=== PATIENT | female | born 1965 | race Caucasian/White ===

== ENCOUNTER 2018-03-16 06:34 | Day surgery (SDC) | payer BC ==
[~2018-03-16] VITALS: Ht 160 cm; Wt 93.6 kg
[2018-03-16] MEDS ORDERED: IOHEXOL 350 MG/ML 100 ML BTL (for Cath Lab) OTHER ONE (06:35)
--- NOTE | 2018-03-16 07:17 | HHI.HP ---
History of Present Illness Chief Complaint: B LE claudication History of Present Illness 52 yo female with B LE claudication, lifestyle limiting. No rest pain and no tissue loss. CTA suggestive of SFA disease bilaterally. has been feeling well over past few days. Stopped smoking 3 weeks ago. Past/Family/Social History Past Medical History HTN DM XOL Past Surgical History appy osmani knee surgery Social History former tobacco Family History NC Coded Allergies: Morphine (Verified Allergy, Mild, 03/16/18) Review of Systems Constitutional: DENIES: Diaphoretic episodes, Fatigue, Fever, Weight gain, Weight loss, Chills, Dizziness, Change in appetite, Night Sweats Physical Exam Neuro: alert, oriented, no distress, OSORIO HEENT: NC/AT Neck: no JVD Heart: reg rate, no M Lungs: clear B Vascular: no wounds Caprini VTE Risk Assessment Caprini VTE Risk Assessment: No/Low Risk (score <= 1) Caprini Risk Assessment Model Point Value = 1 Point Value = 2 Point Value = 3 Point Value = 5 Age 41-60 Minor surgery BMI > 25 kg/m2 Swollen legs Varicose veins or History of unexplained or recurrent spontaneous Oral contraceptives or hormone replacement Sepsis (< 1 month) Serious lung disease, including pneumonia (< 1 month) Abnormal pulmonary function Acute myocardial infarction Congestive heart failure (< 1 month) History of inflammatory bowel disease Medical patient at bed rest Age 61-74 Arthroscopic surgery Major open surgery (> 45 min) Laparoscopic surgery (> 45 min) Malignancy Confined to bed (> 72 hours) Immobilizing plaster cast Central venous access Age >= 75 History of VTE Family history of VTE Factor V Leiden Prothrombin [id number] Lupus anticoagulant Anticardiolipin antibodies Elevated serum homocysteine Heparin-induced thrombocytopenia Other congenital or acquired thrombophilia Stroke (< 1 month) Elective arthroplasty Hip, pelvis, or leg fracture Acute spinal cord injury (< 1 month) Prophylaxis Regimen Total Risk Factor Score Risk Level Prophylaxis Regimen 0-1 Low Early ambulation 2 Moderate Order ONE of the following: *Sequential Compression Device (SCD) *Heparin 5000 units SQ BID 3-4 Higher Order ONE of the following medications: *Heparin 5000 units SQ TID *Enoxaparin/Lovenox 40 mg SQ daily (WT < 150 kg, CrCl > 30 mL/min) *Enoxaparin/Lovenox 30 mg SQ daily (WT < 150 kg, CrCl > 10-29 mL/min) *Enoxaparin/Lovenox 30 mg SQ BID (WT < 150 kg, CrCl > 30 mL/min) AND/OR *Sequential Compression Device (SCD) 5 or more Highest Order ONE of the following medications: *Heparin 5000 units SQ TID (Preferred with Epidurals) *Enoxaparin/Lovenox 40 mg SQ daily (WT < 150 kg, CrCl > 30 mL/min) *Enoxaparin/Lovenox 30 mg SQ daily (WT < 150 kg, CrCl > 10-29 mL/min) *Enoxaparin/Lovenox 30 mg SQ BID (WT < 150 kg, CrCl > 30 mL/min) AND *Sequential Compression Device (SCD) Assessment and Plan Plan B LE angiogram DOCU and home post-operatively Discharge Planning today Wallace Rodriguez MD Mar 16, 2018 07:17
[2018-03-16] MEDS ORDERED: METF1000 PO (07:22)
[2018-03-16] MEDS ORDERED: ESTR1TAB PO (07:22)
[2018-03-16] MEDS ORDERED: TRAM50TA PO (07:22)
[2018-03-16] MEDS ORDERED: LISI20TA PO (07:22)
[2018-03-16] MEDS ORDERED: ATOR10TA15 PO (07:22)
[2018-03-16] MEDS ORDERED: AMBI5TAB PO (07:22)
[2018-03-16] MEDS ORDERED: ASPI-516 PO (07:22)
[2018-03-16] MEDS ORDERED: PROG100C PO (07:22)
[2018-03-16] MEDS ORDERED: CLOP75TA PO (07:22)
[2018-03-16 07:25] VITALS: BP 131/93; PULSE 92; RESP 18; TEMP 97.8; O2SAT 98
[2018-03-16] MEDS ORDERED: HEPARIN-NS/PF INJ 1,000 ML ONE (07:30)
[2018-03-16] MEDS ORDERED: SODIUM BICARBONATE 100 MEQ in D5W 1000 ML IV SCH (07:30)
[2018-03-16] MEDS ORDERED: HEPARIN SODIUM - IV 10,000 UNITS/10 ML VIAL ONE (07:33)
[2018-03-16] MEDS ORDERED: MIDAZOLAM HCL 5 MG/5 ML VIAL ONE (07:33)
[2018-03-16 07:42] LABS: CREATININE 1.17 MG/DL (0.50-1.00)
[2018-03-16] MEDS ORDERED: MIDAZOLAM HCL 2 MG/2 ML VIAL ONE ×2 (07:51→08:16)
--- NOTE | 2018-03-16 08:42 | HHI.PR ---
cc: Wallace Rodriguez MD Immediate Post Op Note Procedure Date: Mar 16, 2018 Pre Op Diagnosis: B LE claudication, PAD Post Op Diagnosis: B LE claudication, PAD Surgeon: Wallace Rodriguez Websphere Commerce Developer(s): none Procedure: 1. Aortogram w/ B LE angiogram 2. B SFA NURSERY TECHNICIAN (5mm) 3. B EEG TECHNOLOGIST Angioseal Findings: B SFA stenosis, successful NURSERY TECHNICIAN good runoff Complications: none Specimen(s) removed: none Estimated blood loss: 15mL Anesthesia: MAC Drains: None Patient to: Other (DOCU) Patient Condition: Good Implant/Devices: SEE IMPLANT LOG (if applicable) Date/Time of Procedure: SEE SURGICAL CARE RECORD Wallace Rodriguez MD Mar 16, 2018 08:42
--- NOTE | 2018-03-16 08:51 | CATHPROC ---
[facility] HIS Report Study Information Study Number Admission Scheduled Start Study Start [id number] Mar 16 2018 6:34AM 03/16/2018 Mar 16 2018 7:26AM [place] Service Cath Endovascular Study Admit Source Facility Department Other [facility] - [facility] Set Up Operator Tool Physician and Clinical Staff Initial MD Rodriguez, Wallace Geophysics Scientistcady Meadows RN, Julio Recorder Panfilo Ochoa,RT(R) Shavon Crocker,RT(R) (BS) Procedures Performed Procedure Location (Site) Vessel Name Abdominal Angiogram Abd Aorta (A3) Aorta MORTGAGE MANAGER SFA (left) Femoral Art MORTGAGE MANAGER SFA (right) Femoral Art Wire insertion Fem Art (left) Femoral Art Wire insertion Fem Art (right) Femoral Art Equipment Time Sorting Livestock Worker Description Size Mfg Part Number Used/Scraped [id number] 07:52 ANGIO-DYNAMICS OMNI FLUSH 65CM CATHETER FR 4 Used *[id number] INTRODUCER SET, 07:38 [employer]. FR 5 [id number] *[id number] Used MICROPUNCTURE STIFF SHEATH, FR6 KEIKO 1 FLEXOR [id number] 07:59 COOK/DIMPLE FR 6 Used 55CM *[id number] 08:06 DAIG/ST. EMILY MEDICAL ANGIOSEAL, FR6 VIP FR 6 Used *[id number] 08:28 DAIG/ST. EMILY MEDICAL ANGIOSEAL, FR6 VIP FR 6 Used *[id number] BALLOON, EVERCROSS 5 X 120 [id number] 08:28 [employer] 5 X 120 Used 135CM *[id number] BALLOON, EVERCROSS 5 X 60 08:05 [employer] 5 X 60 [id number] Used 135CM [id number] 07:38 [employer] BLANKET,WARM AIR CCL * Used *[id number] 07:38 [employer] PACK, CCL CUSTOM * Used *[id number] 08:03 [employer] 30 MOHIT INDEFLATOR Used *[id number] [id number] 08:01 [employer] WIRE, PRATHER 260CM .035 260CM Used *[id number] TUBING, PRESSURE INJECTION [id number] 07:38 NAMIC 72" Used 72" *[id number] 07:38 [employer]COMED OMNIPAQUE, 300 MG, 150ML 150ML [id number] Used 07:38 [employer] OMNIPAQUE, 300 MG, 50ML 50ML [id number] Used [id number] 07:39 TERUMO MED[employer] SHEATH, FR5 TERUMO (10CM) FR 5 Used *[id number] 07:45 [employer] MEDICAL SHEATH, FR5 TERUMO (10CM) FR 5 Used *[id number] WIRE, ANGLED GLIDE .035 [id number] 07:38 TERUMO MEDICAL/DIMPLE 260CM Used 260CM *[id number] Equipment Model, Serial, Lot Number and Expiration Data Description Model Number Serial Number Lot Number Expiration Date ANGIOSEAL, FR6 VIP [id number] 07-27-2018 ANGIOSEAL, FR6 VIP [id number] 10-27-2018 BALLOON, EVERCROSS 5 X 120 [id number] 12-21-2020 135CM SHEATH, FR6 KEIKO 1 FLEXOR [id number] 11-11-2020 55CM History: Allergies Allergy Reaction morphine Medication Medication Total Dose (Bolus/Oral) Medication Total Dosage/Unit 1% XYLOCAINE 20 mL FENTANYL 250 mcg HEPARIN 3000 units VERSED 9 mg Medications (Bolus/Oral) Medication Time Given Dosage/Unit Administered By Reason VERSED 03/16/2018 7:40:55 AM 2 mg Julio Meadows RN 2 mg VERSED given in lab by Julio Meadows RN via Peripheral IV. Ordered by Wallace Rodriguez. FENTANYL 03/16/2018 7:42:17 AM 50 mcg Julio Meadows RN 50 mcg FENTANYL given in lab by Julio Meadows RN in Left Antecubital via Peripheral IV. Ordered by Wallace Kim. VERSED 03/16/2018 7:44:48 AM 2 mg Julio Meadows RN 2 mg VERSED given in lab by Julio Meadows RN via Peripheral IV. Ordered by Wallace Rodriguez. VERSED 03/16/2018 7:47:40 AM 1 mg Wallace Rodriguez 1 mg VERSED given in lab by Wallace Rodriguez via Peripheral IV. Ordered by Wallace Rodriguez. 1% XYLOCAINE 03/16/2018 7:48:53 AM 10 mL Wallace Rodriguez 10 mL 1% XYLOCAINE given in lab by Wallace Rodriguez in Right Groin via Subcutaneous. Ordered by Wallace Rodriguez. FENTANYL 03/16/2018 7:48:54 AM 50 mcg Wallace Rodriguez 50 mcg FENTANYL given in lab by Wallace Rodriguez via Peripheral IV. Ordered by Wallace Rodriguez. FENTANYL 03/16/2018 7:53:40 AM 50 mcg Julio Meadows RN 50 mcg FENTANYL given in lab by Julio Meadows RN via Peripheral IV. Ordered by Wallace Rodriguez. VERSED 03/16/2018 7:56:37 AM 1 mg Julio Meadows RN 1 mg VERSED given in lab by Julio Meadows RN via Peripheral IV. Ordered by Wallace Rodriguez. HEPARIN 03/16/2018 8:00:26 AM 3000 units Julio Meadows RN 3000 units HEPARIN given in lab by Julio Meadows RN via Peripheral IV. Ordered by Wallace Rodriguez. FENTANYL 03/16/2018 8:08:36 AM 50 mcg Julio Meadosw RN 50 mcg FENTANYL given in lab by Julio Meadows RN via Peripheral IV. Ordered by Wallace Rodriguez. VERSED 03/16/2018 8:11:14 AM 1 mg Julio Meadows RN 1 mg VERSED given in lab by Julio Meadows RN via Peripheral IV. Ordered by Wallace Rodriguez. 1% XYLOCAINE 03/16/2018 8:12:00 AM 10 mL Wallace Rodriguez 10 mL 1% XYLOCAINE given in lab by Wallace Rodriguez in Left Groin via Subcutaneous. Ordered by Wallace oRdriguez. VERSED 03/16/2018 8:15:26 AM 2 mg Julio Meadows RN 2 mg VERSED given in lab by Julio Meadows RN via Peripheral IV. Ordered by Wallace Rodriguez. FENTANYL 03/16/2018 8:19:10 AM 50 mcg Julio Meadows RN 50 mcg FENTANYL given in lab by Julio Meadows RN via Peripheral IV. Ordered by Wallace Rodriguez. Medication (Drip) Medication Time Given Dosage/Unit Concentration/Unit Diluent (ml) Solution IV Solutions 03/16/2018 7:34:49 AM 0 mL (IV) 500 NaCl .9 Patient arrived on IV Solutions given by Wallace Rodriguez in Left Antecubital via Peripheral IV. Pump/D rip Flow = 20 ml/hr using NaCl .9. Ordered by Wallace Rodriguez. Initial Case Assessment Cardiovascular HR Rhythm NIBP Chest Pain 85 sr 142/69 0 Edema Present Skin color Skin None Normal Warm Dry Circulatory - Right Pulses Femoral 2 Scale (0,1,2,3,4,d) Circulatory - Left Pulses Femoral 2 Scale (0,1,2,3,4,d) Neurological State Oriented to time-place- Alert Moves all extremities person Respiration - General Respiration Rate SpO2 (%) O2 (lpm) (B/min) 18 96 0 Final Case Assessment Cardiovascular HR Rhythm NIBP 97 sr 127/72 Edema Present Skin color Skin None Normal Warm Dry Circulatory - Right Pulses Femoral 2 Scale (0,1,2,3,4,d) Circulatory - Left Pulses Femoral 2 Scale (0,1,2,3,4,d) Neurological State Oriented to time-place- Alert Moves all extremities person Respiration - General Respiration Rate SpO2 (%) O2 (lpm) (B/min) 18 96 0 Chronological Log Time Study Chronological Log 7:25:46 Patient arrived via Bed. 7:25:48 Patient Name, D.O.B, / Armband Verified By R.N. 7:25:49 Consent signed by the physician and the patient and verified by the [facility] Set Up Operator Tool staff. 7:25:50 Pre-op and post- op instructions given; patient acknowledges understanding of instructions. 7:26:08 Verbal Stimulation=2 Physical Stimulation=2 Airway=2 Respiration=2 TOTAL=8. (0=absent, 1=li mited, 2=present) 7:26:16 Presedation assessment performed by Ch[facility] Machine Set Up Operator Tool RN. 7:26:18 Patient has been NPO for More than 6Hrs. 7:26:19 Skin Breakdown-none present per patient. Vitals capture started with the following parameters, Patient=Adult, Interval=5 min, Initial Pr wulpvf=000 mmHg, 7:34:31 Deflation Rate=5 mmHg, Cuff placed on Right Ankle 7:34:38 A # 20 IV was noted in the Antecubital (left). Grade = 0 Patient arrived on IV Solutions given by Wallace Rodriguez in Left Antecubital via Peripheral IV. Pump/Drip Flow = 20 ml/hr 7:34:49 using NaCl .9. Ordered by Wallace Rodriguez. 7:35:09 HR=86 bpm, RMKX=457/69 mmhg, SpO2=96.0 %, Resp=21 B/min 7:35:10 History and physical on the chart or being dictated. 7:35:21 Reference ECG taken Assessment: Initial Case, HR=85 BPM, Rhythm=sr, OHVY=837/69 mmhg, Chest Pain=0, Edema=None, [place] r=Normal, Skin = Warm, Dry Right Pulses: Femoral=2 7:35:23 Left Pulses: Femoral=2 Neurological: State=Alert, Ox3, OSORIO Respiration: Resp=18 B/min, SpO2=96 %, O2=0 lpm 7:36:00 Bilateral groins prepped with 2% chlorhexidine, and draped after a 3 minute waiting time. 7:39:05 MD arrived. 7:40:06 HR=83 bpm, KSUW=292/85 mmhg, SpO2=97.0 %, Resp=18 B/min 7:40:55 2 mg VERSED given in lab by Julio Meadows RN via Peripheral IV. Ordered by Wallace Rodriguez. 7:42:17 50 mcg FENTANYL given in lab by Julio Meadows RN in Left Antecubital via Peripheral IV. Order ed by Wallace Rodriguez. 7:44:48 2 mg VERSED given in lab by Julio Meadows RN via Peripheral IV. Ordered by Wallace Rodriguez. 7:45:01 HR=88 bpm, CKMG=919/78 mmhg, SpO2=93.0 %, Resp=22 B/min, Omalley=2 7:47:40 1 mg VERSED given in lab by Wallace Rodriguez via Peripheral IV. Ordered by Wallace Rodriguez. Time Out. Correct patient, correct procedure, correct physician, labs, allergies, and equipment verified with slab lifting supervisor 7:48:24 team present. Fire risk assesment completed (see hard stop sheet for coding). Time Out Concu rred by and individual staff in procedure. 7:48:34 Presedation re-assessment performed by Ch[facility] Machine Set Up Operator Tool RN. 7:48:36 Case Start 7:48:38 Verbal Stimulation=2 Physical Stimulation=2 Airway=2 Respiration=2 TOTAL=8. (0=absent, 1=luna ited, 2=present) 7:48:53 10 mL 1% XYLOCAINE given in lab by Wallace Rodriguez in Right Groin via Subcutaneous. Ordered Wallace Cross. 7:48:54 50 mcg FENTANYL given in lab by Wallace Rodriguez via Peripheral IV. Ordered by Wallace Rodriguez. 7:50:04 HR=82 bpm, HGOK=527/65 mmhg, SpO2=93.0 %, Resp=19 B/min, Omalley=2 7:50:39 Access site was Right Femoral Artery. A INTRODUCER SET, MICROPUNCTURE STIFF FR 5 was advanced into the Fem Art (right) using the Percu иринаeous 7:50:50 technique. A SHEATH, FR5 TERUMO (10CM) FR 5 was exchanged in the Fem Art (right). This was necessary in ord er to 7:51:21 accomodate a larger catheter. A OMNI FLUSH 65CM CATHETER FR 4 was advanced over a wire. OMNIPAQUE, 300 MG, 150ML 150ML was use d for 7:52:38 injections. 7:53:40 50 mcg FENTANYL given in lab by Julio Meadows RN via Peripheral IV. Ordered by Wallace Rodriguez . 7:54:06 Wire removed 7:54:18 Through a OMNI FLUSH 65CM CATHETER FR 4, The Abdominal Aorta was injected with 10 cc's of co ntrast. 7:55:38 HR=85 bpm, QKVO=720/72 mmhg, SpO2=96.0 %, Resp=14 B/min, Omalley=2 7:56:33 Wire removed 7:56:37 1 mg VERSED given in lab by Julio Meadows RN via Peripheral IV. Ordered by Wallace Rodriguez. 7:57:23 Through a OMNI FLUSH 65CM CATHETER FR 4, The left fem was injected with 4 cc's per second. 7:57:54 Through a OMNI FLUSH 65CM CATHETER FR 4, The left sfa was injected with 4 cc's per second. 7:58:18 Through a OMNI FLUSH 65CM CATHETER FR 4, The left pop was injected with 4 cc's per second. 7:59:34 A WIRE, ANGLED GLIDE .035 260CM 260CM was inserted via Fem Art (right). 8:00:06 HR=87 bpm, HUZQ=562/73 mmhg, SpO2=92.0 %, Resp=18 B/min, Omalley=2 8:00:26 3000 units HEPARIN given in lab by Julio Meadows RN via Peripheral IV. Ordered by Jaison Rodriguez. 8:02:50 The previous wire was exchanged for a WIRE, PRATHER 260CM .035 260CM. A SHEATH, FR6 KEIKO 1 FLEXOR 55CM FR 6 was exchanged in the Fem Art (right). This was necessary in order to 8:02:54 accomodate a larger catheter. 8:05:07 HR=89 bpm, HSND=459/76 mmhg, SpO2=92.0 %, Resp=21 B/min, Omalley=2 8:05:37 A BALLOON, EVERCROSS 5 X 60 135CM 5 X 60 was inserted over WIRE, PRATHER 260CM .035 260CM via the SFA (left). 8:05:53 In the SFA (left) a BALLOON, EVERCROSS 5 X 60 135CM 5 X 60 was inflated to 10 atms for 120 s econds. 8:08:36 50 mcg FENTANYL given in lab by Julio Meadows RN via Peripheral IV. Ordered by Wallace Rodriguez . 8:08:40 Balloon Removed. 8:10:09 HR=90 bpm, FZTY=033/67 mmhg, SpO2=94.0 %, Resp=18 B/min, Omalley=2 8:10:36 ANGIOSEAL, FR6 VIP FR 6 placement in the Fem Art (right) 8:11:14 1 mg VERSED given in lab by Julio Meadows RN via Peripheral IV. Ordered by Wallace Rodriguez. 8:12:00 10 mL 1% XYLOCAINE given in lab by Wallace Rodriguez in Left Groin via Subcutaneous. Ordered by Wallace Rodriguez. 8:15:06 HR=82 bpm, XCEO=846/79 mmhg, SpO2=96.0 %, Resp=9 B/min, Omalley=2 8:15:26 2 mg VERSED given in lab by Julio Meadows RN via Peripheral IV. Ordered by Wallace Rodriguez. 8:19:10 50 mcg FENTANYL given in lab by Julio Meadows RN via Peripheral IV. Ordered by Wallace Rodriguez . 8:19:35 Access site was Left Femoral Artery. A INTRODUCER SET, MICROPUNCTURE STIFF FR 5 was advanced into the Fem Art (left) using the Percut aneous 8:19:49 technique. A SHEATH, FR5 TERUMO (10CM) FR 5 was exchanged in the Fem Art (right). This was necessary in ord er to 8:20:06 accomodate a larger catheter. 8:20:07 HR=87 bpm, CUWT=353/68 mmhg, SpO2=89.0 %, Resp=21 B/min, Omalley=2 A OMNI FLUSH 65CM CATHETER FR 4 was advanced over a wire. OMNIPAQUE, 300 MG, 150ML 150ML was use d for 8:21:10 injections. 8:23:58 Manual injections down right leg through 4 ivorian omniflush catheters. 8:25:08 HR=86 bpm, JUYH=280/71 mmhg, SpO2=96.0 %, Resp=19 B/min, Omalley=2 8:25:36 A WIRE, PRATHER 260CM .035 260CM was inserted via Fem Art (left). A SHEATH, FR6 KEIKO 1 FLEXOR 55CM FR 6 was exchanged in the Fem Art (left). This was necessary i n order to 8:26:06 accomodate a larger catheter. A BALLOON, EVERCROSS 5 X 120 135CM 5 X 120 was inserted over WIRE, PRATHER 260CM .035 260CM via th e SFA 8:29:26 (right). 8:29:42 In the SFA (right) a BALLOON, EVERCROSS 5 X 120 135CM 5 X 120 was inflated to 10 atms for 12 0 seconds. 8:30:07 HR=87 bpm, UDUF=804/71 mmhg, SpO2=94.0 %, Resp=20 B/min, Omalley=2 8:32:01 Balloon Removed. 8:33:56 ANGIOSEAL, FR6 VIP FR 6 placement in the Fem Art (left) 8:34:18 Case End (Physician broke scrub) 8:35:10 HR=87 bpm, ZNEG=920/72 mmhg, SpO2=96.0 %, Resp=12 B/min, Omalley=2 Assessment: Final Case, HR=97 BPM, Rhythm=sr, WJJD=107/72 mmhg, Edema=None, Color=Normal, Skin = Warm, Dry Right Pulses: Femoral=2 8:35:27 Left Pulses: Femoral=2 Neurological: State=Alert, Ox3, OSORIO Respiration: Resp=18 B/min, SpO2=96 %, O2=0 lpm 8:37:02 Sterile dressing applied to sites. 8:37:33 No case complications noted. 8:37:35 Cine recording checked. 8:37:42 Bedside Report will be given. 8:40:07 HR=85 bpm, JLHQ=898/81 mmhg, SpO2=96.0 %, Resp=29 B/min 8:43:37 Vitals capture stopped. 8:46:55 Patient moved to stretcher End Study - Contrast Media Used In Study Contrast Total Opened (mL) Total Used (mL) Total Wasted (mL) Omnipaque 100 100 0 End Study - Radiation Exposure Fluoro Time (minutes) 5.4 End Study - Patient Disposition Complications Transferred To No Outpatient Bed
--- NOTE | 2018-03-16 09:47 | MP ---
cc: Wallace Rodriguez MD DATE OF OPERATION: 03/16/2018 PREOPERATIVE DIAGNOSIS: Peripheral arterial occlusive disease, bilateral lower extremity claudication. POSTOPERATIVE DIAGNOSIS: Peripheral arterial occlusive disease, bilateral lower extremity claudication. PROCEDURE PERFORMED: 1. Aortogram with bilateral lower extremity angiogram. 2. Left SFA angioplasty with a 5 mm balloon. 3. Right SFA angioplasty with a 5 mm balloon. 4. Bilateral common femoral artery Angio-Seal. ATTENDING SURGEON: Wallace Rodriguez MD ANESTHESIA: Local with sedation. INDICATIONS FOR PROCEDURE: Mrs. Tyler is a 52-year-old female who has bilateral lower extremity claudication and SFA disease by physical examination and CT scan and she was taken to the operating room for endovascular evaluation and potential treatment. There was no prior based catheter-based imaging available for my review. DESCRIPTION OF PROCEDURE: Informed consent was obtained from the patient. She was taken to the operating room and placed supine on the operating room table. An appropriate timeout was taken to ensure the patient's identity, operative site, and planned procedure. The administration of antibiotics was not necessary as this is a clean procedure without the planned implantation of any foreign object. Everyone in the room agreed with the timeout and we proceeded. Her bilateral groins were prepped and draped and the right groin was anesthetized with 1% lidocaine. A 21-gauge micropuncture needle was used to access the right common femoral artery. This was exchanged using Seldinger technique for a micropuncture sheath through which a 0.035 Glidewire was introduced and the micropuncture sheath was exchanged for a 5-Icelandic sheath. A VCF catheter was placed over the wire into the sheath and the aortogram and pelvic arteriogram was obtained. The Glidewire was re-introduced and navigated down to the left common femoral artery and the VCF catheter was advanced over this and the left lower extremity arteriogram was obtained. The patient was systemically heparinized with 3000 units of IV heparin. A 0.035 Fields wire was advanced into the distal SFA. The VCF catheter and 5-Icelandic sheath were removed and a 6-Icelandic 55-cm Ruben sheath was introduced. A 5 x 60 balloon was used to angioplasty the SFA and the completion angiogram showed excellent result without any recoil or extravasation. The wire, catheter and sheath were removed. The groin was closed with an Angio-Seal. The left groin was anesthetized with 1% lidocaine. A 21-gauge micropuncture needle was used to access the left common femoral artery. This was exchanged using Seldinger technique for a micropuncture sheath through which a 0.035 Glidewire was introduced. The micropuncture sheath was exchanged for a 5-Icelandic sheath. A VCF catheter was placed over the wire and through the sheath and the VCF and [place] were navigated down to the right common femoral artery and a right lower extremity arteriogram was obtained. A 0.035 Fields wire was introduced into the SFA and the VCF catheter and 5-Icelandic sheath were removed and a 6-Icelandic, 55-cm Ruben sheath was introduced. The Fields wire was advanced down the popliteal artery and the SFA on the right was angioplastied with a 5 mm x 120 balloon. The completion angiogram showed excellent result without any recoil or extravasation and only a non-flow limiting dissection. The wire, catheter and sheath were removed and the left groin was closed with an Angio-Seal. The patient was transported to the recovery room in stable condition. I was present and scrubbed and performed the entire procedure. INTERPRETATION OF IMAGES: The patient has a patent terminal aorta without any hemodynamically significant stenoses. The common iliac arteries and external arteries were patent without any hemodynamically significant stenosis. The left common femoral artery, profunda and SFA are patent. There is a mid-SFA stenosis and 3-vessel runoff to the mid-calf. After angioplasty of the left SFA there was excellent result and no recoil or extravasation. On the right hand side, she has a patent common femoral artery, profunda and SFA. There was a mid-SFA stenosis and 3-vessel runoff to the mid-calf. After angioplasty, there was a non-flow limiting dissection without any extravasation. MD AC Peace/JONO , 09:14 AM , 09:46 AM
== END 2018-03-16 11:15 | disposition home or self-care (01) ==
LOC: HDIC 06:34 → HDOC 06:34
PROVIDERS: ATTEND Surgery
DX: I73.9 Peripheral vascular disease, unspecified (principal); I10 Essential (primary) hypertension; E11.51 Type 2 diabetes mellitus with diabetic peripheral angiopathy without gangrene; Z87.891 Personal history of nicotine dependence
CPT/HCPCS: 37224; 75716; 82565; C1725; C1760; C1769; C1893; G0269; J1644; J2250; J3010; Q9967